=== PATIENT | male | born 1950 | race Caucasian/White ===

== ENCOUNTER 2021-02-10 17:32 | Inpatient (IN) | payer OTHER, BC ==
[2021-02-10] MEDS ORDERED: LACTATED RINGERS SOLUTION 1000 ML INFUS.BAG IV ONE (19:07)
[2021-02-10] MEDS ORDERED: ACETAMINOPHEN 1000 MG/100 ML VIAL (NON FORMULARY) IVPB ONE (19:27)
[2021-02-10] MEDS ORDERED: LIDOCAINE 5% TOPICAL PATCH TP ONE (19:27)
[2021-02-10] MEDS ORDERED: LIDOCAINE 5% TOPICAL PATCH ONE (19:38)
[2021-02-10] MEDS ORDERED: ACETAMINOPHEN INJECTION 100 ML IVPB ONE (19:38)
[2021-02-10 19:50] LABS: BASO % 0.5 % (0-2.0); EOS % 0.1 % (0-4.5); HEMATOCRIT 33.1 % (35.4-49); HEMOGLOBIN 11.1 GM/dL (11.7-16.9); LYMPH % 3.1 % (8-40); MCH 33.3 pg (25.7-33.7); MCHC 33.4 g/dl (32.0-35.9); MEAN CELL VOLUME 99.7 fl (80-96); MONO % 6.6 % (3.8-10.2); NEUT % 89.7 % (42.8-82.8); RBC 3.32 M/mm3 (4.00-5.60); RDW 18.6 % (11.9-15.9)
[2021-02-10 19:58] LABS: INR 1.25 (0.83-1.09); PROTHROMBIN TIME (PATIENT) 15.3 SEC (9.7-13.0)
[2021-02-10 20:01] LABS: ACTIVATED PTT 18.2 SECONDS (25.2-36.5)
[2021-02-10 20:18] LABS: CHLORIDE 99 mmol/L (98-107); SODIUM 134 mmol/L (136-145)
[2021-02-10 20:20] LABS: CALCIUM 9.2 mg/dL (8.5-10.1)
[2021-02-10 20:21] LABS: ALBUMIN 2.7 g/dl (3.4-5.0); ANION GAP 11 MMOL/L (8-16); BLOOD UREA NITROGEN 29.3 mg/dL (7-18); CO2 24 mmol/L (21-32); GLUCOSE,RANDOM 95 mg/dL (74-106); LIPASE 92 U/L (73-393)
[2021-02-10 20:22] LABS: MEAN PLT VOLUME 8.3 fl (7.5-11.1); PLATELET COUNT 507 K/MM3 (134-434)
[2021-02-10 20:24] LABS: CREATININE 2.3 mg/dL (0.55-1.3); SGOT/AST 41 U/L (15-37); SGPT/ALT 26 U/L (13-61)
[2021-02-10 20:25] LABS: BILIRUBIN,TOTAL 0.7 mg/dL (0.2-1)
[2021-02-10 20:26] LABS: TOT PROT 7.7 g/dl (6.4-8.2)
[2021-02-10 20:27] LABS: ALK PHOS 136 U/L (45-117)
[2021-02-10] MEDS ORDERED: VANCOMYCIN 1 GM in D5W (PRE-DOCKED) 1,000 MG/250 ML IVPB ONE (20:37)
[2021-02-10] MEDS ORDERED: VANCOMYCIN 1 GRAM (PRE-DOCKED) 1,000 MG/250 ML BAG IVPB ONE (21:34)
[2021-02-10] MEDS ORDERED: LIDOCAINE PATCH REMOVAL MC SCH (22:00)
[2021-02-10 22:30] LABS: CHLORIDE 102 mmol/L (98-107); SODIUM 134 mmol/L (136-145)
[2021-02-10 22:33] LABS: ALBUMIN 2.4 g/dl (3.4-5.0); ANION GAP 10 MMOL/L (8-16); BLOOD UREA NITROGEN 29.8 mg/dL (7-18); CALCIUM 8.8 mg/dL (8.5-10.1); CO2 23 mmol/L (21-32); GLUCOSE,RANDOM 110 mg/dL (74-106)
[2021-02-10 22:36] LABS: CREATININE 2.2 mg/dL (0.55-1.3); SGOT/AST 24 U/L (15-37); SGPT/ALT 21 U/L (13-61)
[2021-02-10] MEDS ORDERED: SODIUM CHLORIDE 1,000 ML IV STA (22:36)
[2021-02-10 22:38] LABS: BILIRUBIN,TOTAL 0.6 mg/dL (0.2-1); TOT PROT 6.6 g/dl (6.4-8.2)
[2021-02-10 22:39] LABS: ALK PHOS 119 U/L (45-117)
[2021-02-10 23:53] LABS: EPI CELLS 25 /uL (0-25.1); HYALINE CASTS 16 /uL (0-3.1); URINE APPEARANCE CLOUDY; URINE BACTERIA 26 /uL (0-1359); URINE BILIRUBIN 2+ (NEGATIVE); URINE COLOR DK YELLOW; URINE GLUCOSE (UA) NEGATIVE (NEGATIVE); URINE KETONE 1+ (NEGATIVE); URINE LEUK ESTERASE NEGATIVE (NEGATIVE); URINE NITRITE NEGATIVE (NEGATIVE); URINE PROTEIN 1+ (NEGATIVE); URINE RBC 22 /uL (0-23.9); URINE WBC 21 /uL (0-25.8)
[2021-02-11 06:46] VITALS: BMI 23.8
[2021-02-11] MEDS ORDERED: LIDOCAINE PATCH REMOVAL MC ONE (07:00)
[2021-02-11] MEDS ORDERED: ACETAMINOPHEN 325 MG TABLET (FP) PO PRN (08:47)
[2021-02-11 09:25] LABS: BASO % 0.5 % (0-2.0); EOS % 1.3 % (0-4.5); HEMATOCRIT 29.7 % (35.4-49); HEMOGLOBIN 9.9 GM/dL (11.7-16.9); LYMPH % 7.1 % (8-40); MCHC 33.2 g/dl (32.0-35.9); MEAN CELL VOLUME 99.5 fl (80-96); MEAN PLT VOLUME 7.4 fl (7.5-11.1); MONO % 6.8 % (3.8-10.2); NEUT % 84.3 % (42.8-82.8); PLATELET COUNT 405 K/MM3 (134-434); RBC 2.99 M/mm3 (4.00-5.60); RDW 18.7 % (11.9-15.9); WHITE BLOOD COUNT 6.9 K/mm3 (4.0-10.0)
[2021-02-11 09:53] LABS: ALBUMIN 2.4 g/dl (3.4-5.0); BLOOD UREA NITROGEN 28.1 mg/dL (7-18); CALCIUM 8.6 mg/dL (8.5-10.1); MAGNESIUM 2.2 mg/dL (1.8-2.4)
[2021-02-11 09:56] LABS: CREATININE 1.7 mg/dL (0.55-1.3)
[2021-02-11 09:58] LABS: BILIRUBIN,TOTAL 0.5 mg/dL (0.2-1); TOT PROT 6.6 g/dl (6.4-8.2)
[2021-02-11] MEDS ORDERED: AMPICILLIN NA/SULBACTAM NA 1.5 GM VIAL ONE ×2 (10:04→18:02)
[2021-02-11] MEDS ORDERED: SODIUM CHLORIDE 100 ML IVPB ONE ×2 (10:05→18:02)
[2021-02-11] MEDS: AMPICILLIN NA/SULBACTAM NA 1.5 GM in SODIUM CHLORIDE 100 ML IVPB SCH ×2 (10:14→18:08)
[2021-02-11] MEDS: SODIUM CHLORIDE 1,000 ML IV SCH (13:43)
[2021-02-12] MEDS ORDERED: AMPICILLIN NA/SULBACTAM NA 1.5 GM VIAL ONE ×3 (01:49→17:40)
[2021-02-12] MEDS ORDERED: SODIUM CHLORIDE 100 ML IVPB ONE ×3 (01:49→17:40)
[2021-02-12] MEDS: AMPICILLIN NA/SULBACTAM NA 1.5 GM in SODIUM CHLORIDE 100 ML IVPB SCH ×3 (01:50→17:43)
[2021-02-12 08:56] LABS: BASO % 0.9 % (0-2.0); EOS % 2.1 % (0-4.5); HEMATOCRIT 31.7 % (35.4-49); HEMOGLOBIN 10.4 GM/dL (11.7-16.9); LYMPH % 7.5 % (8-40); MCH 32.6 pg (25.7-33.7); MCHC 32.8 g/dl (32.0-35.9); MEAN CELL VOLUME 99.3 fl (80-96); MEAN PLT VOLUME 7.7 fl (7.5-11.1); MONO % 6.9 % (3.8-10.2); NEUT % 82.6 % (42.8-82.8); PLATELET COUNT 358 K/MM3 (134-434); RBC 3.19 M/mm3 (4.00-5.60); RDW 18.4 % (11.9-15.9); WHITE BLOOD COUNT 6.3 K/mm3 (4.0-10.0)
[2021-02-12 09:02] LABS: INR 1.1 (0.83-1.09); PROTHROMBIN TIME (PATIENT) 13.5 SEC (9.7-13.0)
[2021-02-12 09:05] LABS: ACTIVATED PTT 32.2 SECONDS (25.2-36.5)
[2021-02-12] MEDS: SODIUM CHLORIDE 1,000 ML IV SCH (09:08)
[2021-02-12] MEDS: HEPARIN NA (PORCINE) 5,000 UNITS/ML 1ML VIAL SQ SCH ×2 (09:08→21:23)
[2021-02-12 09:12] LABS: CHLORIDE 108 mmol/L (98-107); SODIUM 140 mmol/L (136-145)
[2021-02-12 09:17] LABS: ALBUMIN 2.6 g/dl (3.4-5.0); ANION GAP 6 MMOL/L (8-16); CALCIUM 8.8 mg/dL (8.5-10.1); CO2 26 mmol/L (21-32); GLUCOSE,RANDOM 83 mg/dL (74-106)
[2021-02-12 09:18] LABS: MAGNESIUM 2.1 mg/dL (1.8-2.4)
[2021-02-12 09:20] LABS: CREATININE 1.2 mg/dL (0.55-1.3); SGOT/AST 37 U/L (15-37); SGPT/ALT 30 U/L (13-61)
[2021-02-12 09:21] LABS: BILIRUBIN,TOTAL 0.3 mg/dL (0.2-1)
[2021-02-12 09:23] LABS: ALK PHOS 131 U/L (45-117)
[2021-02-12] MEDS ORDERED: NEBIVOLOL 5 MG TABLET (FP) PO SCH (10:00)
[2021-02-13] MEDS ORDERED: AMPICILLIN NA/SULBACTAM NA 1.5 GM VIAL ONE (02:33)
[2021-02-13] MEDS ORDERED: SODIUM CHLORIDE 100 ML IVPB ONE (02:34)
[2021-02-13] MEDS: AMPICILLIN NA/SULBACTAM NA 1.5 GM in SODIUM CHLORIDE 100 ML IVPB SCH (02:49)
[2021-02-13] MEDS: SODIUM CHLORIDE 1,000 ML IV SCH (04:12)
[2021-02-13 06:33] VITALS: PULSE 74
[2021-02-13] MEDS ORDERED: AMOX TR/POT CLAV 875MG/125MG TABLETS (FP) PO SCH (08:00)
[2021-02-13] MEDS ORDERED: PT OWN MED DRAWER 7, Y5N ONE (09:04)
[2021-02-13] MEDS: HEPARIN NA (PORCINE) 5,000 UNITS/ML 1ML VIAL SQ SCH (09:12)
[2021-02-13 12:49] VITALS: BP 137/73; TEMP 98.2
== END 2021-02-13 09:44 | disposition home or self-care (01) | DRG 683 ==
LOC: JER 17:32 → JERBED 22:05 → J5S 02-11 05:12
PROVIDERS: ADMIT Hospitalist; ATTEND Internal Medicine
DX: N17.9 Acute kidney failure, unspecified (principal); L03.116 Cellulitis of left lower limb; E72.20 Disorder of urea cycle metabolism, unspecified; R17 Unspecified jaundice; E87.1 Hypo-osmolality and hyponatremia; F10.10 Alcohol abuse, uncomplicated; D3A.8 Other benign neuroendocrine tumors; D50.0 Iron deficiency anemia secondary to blood loss (chronic); R63.4 Abnormal weight loss; Z68.23 Body mass index [BMI] 23.0-23.9, adult; E78.5 Hyperlipidemia, unspecified; E86.0 Dehydration; D72.829 Elevated white blood cell count, unspecified
CPT/HCPCS: 36415; 70450-TC; 71250-TC; 72125-TC; 73030-TC-RT-FY; 73070-TC-RT-FY; 73110-TC-LT-FY; 73130-TC-LT-FY; 73562-TC-RT-FY; 74176-TC; 80053; 80307; 81003; 82140; 82436; 82550; 82570; 83690; 83735; 84133; 84156; 84300; 84484; 85025; 85610; 85730; 86850; 86900; 86901; 87040; 87086; 93005; 93010; 97116-GP; 97161-GP; 99285-25; C9803; J0131; J1644; U0003; U0005